=== PATIENT | male | born 1985 | race Caucasian/White ===

== ENCOUNTER 2019-11-09 18:10 | Emergency (ER) | payer BC ==
--- NOTE | 2019-11-09 18:56 | EDM.PDOC ---
ED HPI GENERAL MEDICAL PROBLEM - General Chief Complaint: Cardiovascular Problem Stated Complaint: bp Time Seen by Provider: 11/09/19 18:40 Source of Information: Reports: Patient History Limitations: Reports: No Limitations - History of Present Illness INITIAL COMMENTS - FREE TEXT/NARRATIVE: Patient states over the last 2 days he has been having some blood pressure issues it occurred while driving yesterday in the [place] area but he got a warm sensation all over his hands went numb he pulled over and called EMS who transported him to the emergency room where he received a full work-up chest x-ray lab troponin EKG urine secondary to hypertension everything come back negative he was given some medicine to take by mouth it got down to 150/100 and he was discharged and told to follow-up with his primary care provider. Tonight while sitting at home he started feeling kind of warm and flushed all over with the same signs and symptoms checked his blood pressure and it was 172/ 120 with a heart rate of 90 and that was after taking his blood pressure medicine at 4:00 Patient within the last month and a half or so has recently been changed to metoprolol 50 mg twice a day from losartan 100 mg a day states he was supposed to follow-up with primary care provider did not he originally was on lisinopril for couple years and then had a dry hacking cough with it all the time was changed to losartan and had a questionable cough after it so it was stopped and he was changed to metoprolol but he states the cough is still there he said the losartan worked very well for control. He denies any endorgan signs or symptoms no headache no vision change chest pain issues states he just feels kind of warm all over may be flushed Duration: Hour(s): Improves with: Reports: Other (Blood pressure medicine) Worsens with: Reports: None Associated Symptoms: Reports: No Other Symptoms. Denies: Confusion, Chest Pain , Cough, cough w sputum, Diaphoresis, Fever/Chills, Headaches, Malaise, Nausea/ Vomiting, Seizure, Shortness of Breath, Syncope, Weakness - Related Data Allergies Allergy/AdvReac Type Severity Reaction Status Date / Time lisinopril Allergy Cough Verified 11/09/19 18:26 Home Meds: Home Meds Metoprolol Tartrate 50 mg PO BID 11/09/19 [History] Past Medical History Cardiovascular History: Reports: Hypertension Social & Family History - Tobacco Use Smoking Status *Q: Never Smoker - Alcohol Use Days Per Week of Alcohol Use: 3 Number of Drinks Per Day: 1 Total Drinks Per Week: 3 - Recreational Drug Use Recreational Drug Use: No ED ROS GENERAL - Review of Systems Review Of Systems: See Below Constitutional: Reports: No Symptoms HEENT: Reports: No Symptoms Respiratory: Reports: No Symptoms Cardiovascular: Reports: No Symptoms Endocrine: Reports: No Symptoms GI/Abdominal: Reports: No Symptoms : Reports: No Symptoms Musculoskeletal: Reports: No Symptoms Skin: Reports: No Symptoms Neurological: Reports: Numbness, Tingling, Other (Yesterday when he had the blood pressure issues numbness and tingling in the hands same he had today but they have resolved at time of presentation to the ER). Denies: Confusion, Dizziness, Headache, Paresthesia, Seizure, Syncope, Trouble Speaking, Weakness, Gait Disturbance Psychiatric: Reports: No Symptoms Hematologic/Lymphatic: Reports: No Symptoms Immunologic: Reports: No Symptoms ED EXAM, GENERAL - Physical Exam Exam: See Below Exam Limited By: No Limitations General Appearance: Alert, WD/WN, No Apparent Distress Eye Exam: Bilateral Eye: EOMI, PERRL, Other (Normal funduscopic exam) Ears: Normal External Exam, Normal Canal, Hearing Grossly Normal, Normal TMs Nose: Normal Inspection, Normal Mucosa, No Blood Throat/Mouth: Normal Inspection, Normal Lips, Normal Teeth, Normal Gums, Normal Oropharynx, Normal Voice, No Airway Compromise Head: Atraumatic, Normocephalic Neck: Normal Inspection, Supple, Non-Tender, Full Range of Motion. No: Carotid Bruit Respiratory/Chest: No Respiratory Distress, Lungs Clear, Normal Breath Sounds, No Accessory Muscle Use Cardiovascular: Normal Peripheral Pulses, Regular Rate, Rhythm, No Edema, No Gallop, No JVD, No Murmur, No Rub GI/Abdominal: Normal Bowel Sounds, Soft, Non-Tender, No Organomegaly, No Distention Back Exam: Normal Inspection, Full Range of Motion Extremities: Normal Inspection, Normal Range of Motion, Non-Tender, No Pedal Edema, Normal Capillary Refill Neurological: Alert, Oriented, CN II-XII Intact, Normal Cognition, Normal Gait, No Motor/Sensory Deficits Psychiatric: Normal Affect, Normal Mood Skin Exam: Warm, Dry, Intact, Normal Color, No Rash Course - Vital Signs Text/Narrative:: Patient is okay with no further work-up secondary to he had a full work-up yesterday and has no endorgan signs or symptoms now He will be given clonidine 0.1 mg p.o. and losartan 100 mg 50 now and 50 to home and instructed to follow-up with his primary care provider Monday morning Patient recheck states he feels much better 141/100 he is okay with going home and following up with his PCP Last Recorded V/S: Last Vital Signs Temp 36.9 C 11/09/19 18:15 Pulse 66 11/09/19 18:15 Resp 16 11/09/19 18:15 BP 141/100 H 11/09/19 20:33 Pulse Ox 98 11/09/19 18:15 - Orders/Labs/Meds Meds: Medications Discontinued Medications Generic Name Dose Route Start Last Admin Trade Name Cheri PRN Reason Stop Dose Admin Clonidine HCl 0.1 mg 11/09/19 18:51 11/09/19 19:00 Catapres PO 11/09/19 18:52 0.1 mg ONETIME ONE Administration Losartan Potassium 50 mg 11/09/19 18:50 11/09/19 20:08 Cozaar PO 11/09/19 18:51 Not Given ONETIME ONE Losartan Potassium 50 mg 11/09/19 18:59 Cozaar PO 11/09/19 19:00 ONETIME ONE Losartan Potassium 50 mg 11/09/19 20:00 11/09/19 20:00 Cozaar PO 11/09/19 20:01 50 mg DAILY ONE Administration Losartan Potassium 50 mg 11/09/19 19:00 11/09/19 19:06 Cozaar PO 11/09/19 19:01 50 mg DAILY ONE Administration Departure - Departure Time of Disposition: 21:30 Disposition: Home, Self-Care 01 Condition: Good Clinical Impression: HTN (hypertension) Instructions: Hypertension, [id number] Referrals: Kaye Roe PA-C [Primary Care Provider] - Forms: ED Department Discharge Additional Instructions: Continue to take your metoprolol as directed take 50 mg losartan in the a.m. 50 mg in the p.m. and see your primary care provider Monday Return to the emergency room if anything gets worse or changes Sepsis Event Note - Evaluation Sepsis Screening Result: No Definite Risk - Focused Exam Vital Signs: Vital Signs Temp Pulse Resp BP BP Pulse Ox 02/01/20 20:33 141/100 H 11/09/19 20:00 150/108 H 11/09/19 19:56 150/108 H 11/09/19 19:06 169/121 H 11/09/19 19:00 169/121 H 11/09/19 18:15 36.9 C 66 16 169/121 H 98 Date Exam was Performed: 11/09/19 Time Exam was Performed: 21:05 - Problem List & Annotations (1) HTN (hypertension) SNOMED Code(s): 35955977 Code(s): I10 - ESSENTIAL (PRIMARY) HYPERTENSION Status: Acute
[2019-11-09] MEDS ORDERED: Losartan 50 MG Tab PO ONE (18:59)
[2019-11-09] MEDS: cloNIDine 0.1 MG Tab PO ONE (19:00)
[2019-11-09] MEDS: Losartan 25 MG Tab PO ONE ×2 (19:06→20:00)
[2019-11-09] MEDS: Losartan 50 MG Tab PO ONE (20:08)
== END 2019-11-09 20:42 | disposition home or self-care (01) ==
LOC: VM.ED 18:10
DX: I10 Essential (primary) hypertension (principal); Z88.8 Allergy status to other drugs, medicaments and biological substances
CPT/HCPCS: 99283; A9270

== ENCOUNTER 2019-11-10 14:58 | Emergency (ER) | payer BC ==
--- NOTE | 2019-11-10 15:39 | EDM.PDOC ---
ED HPI GENERAL MEDICAL PROBLEM - General Chief Complaint: Cardiovascular Problem Stated Complaint: HTN Time Seen by Provider: 11/10/19 15:00 Source of Information: Reports: Patient History Limitations: Reports: No Limitations - History of Present Illness INITIAL COMMENTS - FREE TEXT/NARRATIVE: Patient states today upon getting up he checked his blood pressure at 9 AM it was 155/115 he rechecked it about 40 minutes later after taking his medications and it was the same he checked it again at 1230 and is 156/97 he said he is getting ready to go to a [employer] [place] about 1:00 and he started having a weird burning sensation under the left armpit mostly on the brachial side he states is really not pain may be a 1 out of 10 discomfort and he points to just the brachial side of the humerus. he also states that the corners of his eyes feel kind of weird and tight but no other complaints. He has no endorgan signs or symptoms no headache chest pain shortness of breath issues. States this morning he took his metoprolol 50 mg of losartan 12.5 mg of hydrochlorothiazide with no problems and is been doing fine until about 1: 00. He states overall he feels normal with no other issues or complaints he has follow-up tomorrow with his primary care provider at 6 PM. I saw this patient yesterday in the emergency room and discussed with him at length the work-up that he had Monday in [facility] thing came back normal such as lab work chest x-ray EKG. Patient at this time does not wish to have a full work-up states he may be just a little bit nervous Father does have a history of cardiac issues in his 60s Onset: Today Duration: Hour(s):, Other (Hours with blood pressure the tightness in the corner of the eyes just a few minutes) Severity: Mild Improves with: Reports: Other (Time) Associated Symptoms: Reports: No Other Symptoms. Denies: Confusion, Chest Pain , Diaphoresis, Headaches, Nausea/Vomiting, Shortness of Breath, Syncope, Weakness - Related Data Allergies Allergy/AdvReac Type Severity Reaction Status Date / Time lisinopril Allergy Cough Verified 11/10/19 15:37 Home Meds: Home Meds Metoprolol Tartrate 50 mg PO BID 11/09/19 [History] Losartan/Hydrochlorothiazide [Losartan-HCTZ 100-25 MG] 0.5 tab BID 11/10/19 [ History] Past Medical History Cardiovascular History: Reports: Hypertension ED ROS GENERAL - Review of Systems Review Of Systems: See Below Constitutional: Reports: No Symptoms HEENT: Reports: Other (No vision changes no blurry vision no loss of vision no seeing spots). Denies: Contact Lenses, Ear Discharge, Ear Pain, Eye Discharge, Eye Pain, Nosebleed, Nose Pain, Rhinitis, Sinus Problem, Vertigo, Vision Change Respiratory: Reports: No Symptoms Cardiovascular: Reports: No Symptoms, Blood Pressure Problem, Other (States his pressure has been a lot better today than it was yesterday in the prior since restarting the losartan ). Denies: Chest Pain, Claudication, Dyspnea on Exertion, Edema, Lightheadedness, Orthopnea, Palpitations, PND, Syncope Endocrine: Reports: No Symptoms GI/Abdominal: Reports: No Symptoms : Reports: No Symptoms Musculoskeletal: Reports: No Symptoms Skin: Reports: No Symptoms Neurological: Reports: No Symptoms, Tingling, Other (Tingling as described in the HPI on the brachial side of the axilla). Denies: Confusion, Dizziness, Headache, Numbness, Paresthesia, Pre-Existing Deficit, Seizure, Syncope, Trouble Speaking, Difficulty Walking, Weakness, Change in Speech Psychiatric: Reports: No Symptoms Hematologic/Lymphatic: Reports: No Symptoms Immunologic: Reports: No Symptoms ED EXAM, GENERAL - Physical Exam Exam: See Below Exam Limited By: No Limitations General Appearance: Alert, WD/WN, No Apparent Distress Eye Exam: Bilateral Eye: EOMI, Normal Fundi, PERRL Ears: Hearing Grossly Normal Nose: Normal Inspection, Normal Mucosa, No Blood Throat/Mouth: Normal Inspection, Normal Lips, Normal Teeth, Normal Gums, Normal Oropharynx, Normal Voice, No Airway Compromise Head: Atraumatic, Normocephalic Neck: Normal Inspection, Supple, Non-Tender, Full Range of Motion. No: Carotid Bruit Respiratory/Chest: No Respiratory Distress, Lungs Clear, Normal Breath Sounds, No Accessory Muscle Use, Chest Non-Tender Cardiovascular: Normal Peripheral Pulses, Regular Rate, Rhythm, No Edema, No Gallop, No JVD, No Murmur, No Rub GI/Abdominal: Normal Bowel Sounds, Soft, Non-Tender, No Organomegaly Back Exam: Normal Inspection, Full Range of Motion Extremities: Normal Inspection, Normal Range of Motion, No Pedal Edema, Normal Capillary Refill, Other (There is no noted adenopathy under the left axilla he has full range of motion with the arm shoulder he has normal brachial pulse there is no noted rashes or excoriations) Neurological: Alert, Oriented, CN II-XII Intact, Normal Cognition, Normal Gait, No Motor/Sensory Deficits Psychiatric: Normal Affect, Normal Mood Skin Exam: Warm, Dry, Intact, Normal Color, No Rash Course - Vital Signs Text/Narrative:: EKG shows normal sinus rhythm no acute findings he does have a NM interval that is 158 but there does not appear to be a first-degree block Patient has follow-up with PCP tomorrow at 6 PM Patient has no signs or symptoms of TIA Cranial nerves II through XII are intact he has equal facial sensation bilateral he has equal soft touch sensation in the upper extremities he has a normal gait Departure - Departure Time of Disposition: 15:55 Disposition: Home, Self-Care 01 Condition: Good Clinical Impression: HTN (hypertension) - Discharge Information *PRESCRIPTION DRUG MONITORING PROGRAM REVIEWED*: No *COPY OF PRESCRIPTION DRUG MONITORING REPORT IN PATIENT JAMES: No Referrals: Kaye Roe PA-C [Primary Care Provider] - Forms: ED Department Discharge Additional Instructions: Follow-up with your regular primary care provider tomorrow at 6 PM as scheduled Take all medications as directed Return to the emergency room if anything changes or gets worse Sepsis Event Note - Focused Exam Date Exam was Performed: 11/10/19 Time Exam was Performed: 15:46 - Problem List & Annotations (1) HTN (hypertension) SNOMED Code(s): 15132741 Code(s): I10 - ESSENTIAL (PRIMARY) HYPERTENSION Status: Acute Current Visit: Yes
== END 2019-11-10 16:30 | disposition home or self-care (01) ==
LOC: VM.ED 14:58
DX: I10 Essential (primary) hypertension (principal); Z88.8 Allergy status to other drugs, medicaments and biological substances; Z79.899 Other long term (current) drug therapy
CPT/HCPCS: 93005; 99283-25

== ENCOUNTER 2021-06-21 21:06 | Emergency (ER) | payer BC ==
[2021-06-21] MEDS ORDERED: Ketorolac 30 MG/ML SDV IM ONE (21:37)
--- NOTE | 2021-06-21 21:43 | EDM.PDOC ---
ED HPI GENERAL MEDICAL PROBLEM - General Chief Complaint: Chest Pain Stated Complaint: CHEST PAIN Time Seen by Provider: 06/21/21 21:16 Source of Information: Reports: Patient History Limitations: Reports: No Limitations - History of Present Illness INITIAL COMMENTS - FREE TEXT/NARRATIVE: patient presents with complaints of left sided chest pressure since early this AM. Was kayaking yesterday for over 2 hours. This was his first time doing this. Pain feels like pressure/pain and is reproducible with palpation. Not worse with movement. Some history of HTN and mild anxiety. No nausea, diaphoresis. He does state he has been fixated on it all day and feels it is getting worse. No recent URI symptoms. No fever or chills. No shortness of breath. No worsening of symptoms. No additional worsening with activity. Onset: Today, Gradual Onset Date: 06/21/21 Onset Time: 21:42 Duration: Intermittent, Waxing/Waning Location: Reports: Chest Quality: Reports: Ache Severity: Moderate Improves with: Reports: None Worsens with: Reports: None Context: Reports: Exercise Associated Symptoms: Reports: No Other Symptoms Treatments STITCHDOWN TOE FORMER: Reports: Other (see below) (none) left upper chest, wall Pain Score (Numeric/FACES): 2 - Related Data Allergies Allergy/AdvReac Type Severity Reaction Status Date / Time lisinopril Allergy Cough Verified 06/21/21 21:55 Home Meds: Home Meds Metoprolol Tartrate 50 mg PO BID 11/09/19 [History] Losartan/Hydrochlorothiazide [Losartan-HCTZ 100-25 MG] 0.5 tab BID 11/10/19 [History] Past Medical History Cardiovascular History: Reports: Hypertension ED ROS GENERAL - Review of Systems Review Of Systems: See Below Constitutional: Reports: No Symptoms HEENT: Reports: No Symptoms Respiratory: Reports: No Symptoms Cardiovascular: Reports: Chest Pain Endocrine: Reports: No Symptoms GI/Abdominal: Reports: No Symptoms : Reports: No Symptoms Musculoskeletal: Reports: Muscle Pain Skin: Reports: No Symptoms Neurological: Reports: No Symptoms Psychiatric: Reports: No Symptoms Hematologic/Lymphatic: Reports: No Symptoms Immunologic: Reports: No Symptoms ED EXAM, GENERAL - Physical Exam Exam: See Below Exam Limited By: No Limitations General Appearance: Alert, WD/WN, No Apparent Distress Eye Exam: Bilateral Eye: EOMI, Normal Inspection Ears: Normal TMs Nose: Normal Inspection, Normal Mucosa Throat/Mouth: Normal Inspection, Normal Lips, Normal Teeth, Normal Gums, Normal Oropharynx, Normal Voice, No Airway Compromise Head: Atraumatic, Normocephalic Neck: Normal Inspection, Supple, Non-Tender, Full Range of Motion Respiratory/Chest: No Respiratory Distress, Lungs Clear, Normal Breath Sounds, No Accessory Muscle Use, Chest Non-Tender Cardiovascular: Normal Peripheral Pulses, Regular Rate, Rhythm, No Edema, No Gallop, No JVD, No Murmur, No Rub GI/Abdominal: Normal Bowel Sounds, Soft, Non-Tender, No Organomegaly, No Distention, No Abnormal Bruit, No Mass Back Exam: Normal Inspection, Full Range of Motion, NT Extremities: Normal Inspection, Normal Range of Motion, Non-Tender, Normal Capillary Refill, No Pedal Edema Neurological: Alert, Oriented, CN II-XII Intact, Normal Cognition, Normal Gait, Normal Reflexes, No Motor/Sensory Deficits Psychiatric: Normal Affect, Normal Mood Skin Exam: Warm, Dry, Intact, Normal Color, No Rash Lymphatic: No Adenopathy #1 Interpretation EKG Date: 06/21/21 Time: 21:09 Rhythm: NSR Rate (Beats/Min): 67 [place]: Normal P-Wave: Present QRS: Normal ST-T: Normal QT: Normal Comparison: NA - No Prior EKG EKG Interpretation Comments: Normal sinus rhythm with no ectopy. No prolonged QT interval, no T wave elevation or depression. Normal ECG. Course - Vital Signs Last Recorded V/S: Last Vital Signs Temp 36.8 C 06/21/21 21:06 Pulse 67 06/21/21 21:06 Resp 16 06/21/21 21:06 BP 153/101 H 06/21/21 21:06 Pulse Ox 97 06/21/21 21:06 - Orders/Labs/Meds Labs: Laboratory Tests 06/21/21 Range/Units 21:47 Troponin I High Sens < 4 (<=76) ng/L Meds: Medications Discontinued Medications Generic Name Dose Route Start Last Admin Trade Name Freq PRN Reason Stop Dose Admin Ketorolac Tromethamine 30 mg 06/21/21 21:37 06/21/21 21:50 Ketorolac 30 Mg/Ml Sdv IM 06/21/21 21:38 30 mg ONETIME ONE Administration Departure - Departure Time of Disposition: 22:28 Disposition: Home, Self-Care 01 Condition: Good Clinical Impression: Costochondritis, acute Instructions: Costochondritis, [id number] Referrals: Cheri Roberson MD [Primary Care Provider] - Forms: ED Department Discharge Sepsis Event Note (ED) - Focused Exam Vital Signs: Vital Signs Temp Pulse Resp BP Pulse Ox 06/21/21 21:06 36.8 C 67 16 153/101 H 97 - Problem List & Annotations (1) Costochondritis, acute SNOMED Code(s): 40225534, 51337264 Code(s): M94.0 - CHONDROCOSTAL JUNCTION SYNDROME [TIETZE] Status: Acute Current Visit: Yes - Problem List Review Problem List Initiated/Reviewed/Updated: Yes - Assessment/Plan Admission H&P: Please use this note as an admission H&P Assessment:: costochondritis Plan: 1. Rest the muscles in your left chest 2. Alternate ice and heat for30 minutes at a time 3. Take 1,000 mg of tylenol/acetaminophen up to 3 times per day 4. Take 600 mg ibuprofen 3 times per day 5. Take plenty of water 6. Stretch before exercising 7. Follow up with Dr. Roberson as needed
== END 2021-06-21 22:32 | disposition home or self-care (01) ==
LOC: VM.ED 21:06
DX: M94.0 Chondrocostal junction syndrome [Tietze] (principal); I10 Essential (primary) hypertension; Z88.8 Allergy status to other drugs, medicaments and biological substances; Z79.899 Other long term (current) drug therapy
CPT/HCPCS: 36415; 84484; 93005; 93010; 96372; 99283; 99285-25; J1885